=== PATIENT | male | born 1980 | race Caucasian/White ===

== ENCOUNTER 2023-07-21 11:31 | Emergency (ER) | payer SELFPAY ==
[2023-07-21] VITALS (8 sets, daily range): BP systolic 119–138; BP diastolic 75–85; PULSE 58–80; RESP 18–24; TEMP 36.6; O2SAT 97–100
--- NOTE | ~2023-07-21 | XR_ITS ---
EXAMINATION: XR chest 2V 07/21/2023 12:32 INDICATION: Left-sided chest pain PROCEDURE: PA and lateral views of the chest COMPARISON: No prior studies for comparison. FINDINGS: The lungs are clear. The cardiomediastinal silhouette is within normal limits. There are no pleural effusions. There is no pneumothorax suspected. IMPRESSION: 1: NO ACUTE CARDIOPULMONARY DISEASE. Reviewed, dictated and finalized at location B.
--- NOTE | 2023-07-21 11:29 | ECG_ITS ---
SEE SCANNED COPY FOR CONFIRMED REPORT MTDD
--- NOTE | 2023-07-21 11:38 | ED.CHESTPAIN ---
HPI - Chest Pain General Chief Complaint: Chest Pain Stated Complaint: chest pain Time Seen by Provider: 07/21/23 11:37 History of Present Illness HPI narrative: 43-year-old male history of anxiety presents to the emergency room from chest not for evaluation of worsening chest pain. Patient states that he has been experiencing intermittent chest pain for 1 year, exacerbated by his level of anxiety. States the pain is worse with movement inspiration. Patient also reports that he was started on propranolol of this morning for anxiety. Denies any shortness of breath or difficulty breathing. Denies nausea vomiting. Denies dizziness lightheadedness. Denies illicit drug use. Related Data Allergies Allergy/AdvReac Type Severity Reaction Status Date / Time tramadol AdvReac Seizure Verified 07/21/23 12:07 Review of Systems Review of Systems: CONSTITUTIONAL: Denies fever, chills, or sweats. EYES: Denies visual changes, redness, or discharge. ENT: Denies rhinorrhea, congestion, sore throat, or otalgia. CARDIOVASCULAR: Reports chest pain, palpitations RESPIRATORY: Denies cough or dyspnea. GASTROINTESTINAL: Denies abdominal pain, nausea, vomiting, or diarrhea. GENITOURINARY: Denies dysuria or hematuria. SKIN: Denies rash or itching. MUSCULOSKELETAL: Denies back pain, joint pain, or myalgia. NEUROLOGIC: Denies headache, numbness, dizziness, or weakness. PSYCHIATRIC: Denies anxiety or depression. Exam Narrative: GENERAL: Well-appearing, well-nourished, no physical limitations, and in no acute distress. HEAD: Normocephalic, atraumatic. EYES: Conjunctivae normal, PERRLA and EOMI. CHEST: Clear to auscultation. No respiratory distress. No wheezes rales or rhonchi. HEART: Regular rate and rhythm. No murmur heard. Normal peripheral pulses. EXTREMITIES: Normal range of motion. No edema. No clubbing or cyanosis SKIN: Warm, dry, no rash. No noted wounds NEURO: No focal deficits. Alert and oriented x3. MAEW. CN's II-XI intact bilaterally, normal gait PSYCH: Cooperative. Normal mood and affect. Course Vital Signs Vital signs: Vital Signs Temperature 36.6 C 07/21/23 11:32 Pulse Rate 72 07/21/23 11:32 Respiratory Rate 18 07/21/23 11:32 Blood Pressure 138/78 07/21/23 11:32 Pulse Oximetry 100 07/21/23 11:32 Oxygen Delivery Room Air 07/21/23 11:32 Temperature 36.6 C 07/21/23 11:32 Pulse Rate 71 07/21/23 12:06 Respiratory Rate 18 07/21/23 11:32 Blood Pressure 138/78 07/21/23 11:32 Pulse Oximetry 97 07/21/23 12:13 Oxygen Delivery Room Air 07/21/23 12:15 MDM - Chest Pain MDM Narrative Medical decision making narrative: 43-year-old male history of anxiety of polysubstance abuse who admits to being 30 days clean up presented to us from [facility] for acute onset of chest pain. Exam show no evidence of volume overload. His EKG showed no signs of ischemia. Troponin was negative. Heart score is a 0. Will discharge patient back to [facility]. Encourage patient to speak with staff at [facility] for further direction and medical management. Lab Data 07/21/23 11:53 07/21/23 11:53 Labs: Lab Results 07/21/23 Range/Units 11:53 WBC 9.7 (4.5-10.0) K/mm3 RBC 4.34 L (4.6-6.20) M/mm3 Hgb 13.0 L (14.0-18.0) g/dL Hct 39.5 L (42.0-52.0) % MCV 91.0 (80-100) fl MCH 30.0 (26-34) pg MCHC 32.9 (32-36) g/dl RDW 13.0 (11.5-14.5) % Plt Count 442 H (150-375) k/mm3 MPV 9.6 (7.4-10.4) fl Immature Gran % (Auto) 0.3 (0-0.5) % Neut % (Auto) 79.8 H (45.5-73.1) % Lymph % (Auto) 13.3 L (18.3-44.2) % [place] % (Auto) 5.5 (2.6-8.5) % Eos % (Auto) 0.8 (0-4.4) % Baso % (Auto) 0.3 (0.2-1.2) % Lymph # (Auto) 1.29 (0.9-3.2) K/mm3 [place] # (Auto) 0.5 (0.1-0.6) K/mm3 Eos # (Auto) 0.1 (0-0.3) K/mm3 Baso # (Auto) 0.0 (0.0-0.1) K/mm3 Abs Immat Gran (auto) 0.03 (0.00-0.031) K/mm3 Absolute Neuts (auto) 7.7 H (1.3-6.7) K/mm3 Abs
[2023-07-21 12:07] LABS: Basophils Percent Auto 0.3 % (0.2-1.2); Eosinophils Absolute Auto 0.1 K/mm3 (0-0.3); Eosinophils Percent Auto 0.8 % (0-4.4); Hematocrit 39.5 % (42.0-52.0); Immature Granulocyte Absolute 0.03 K/mm3 (0.00-0.031); Immature Granulocyte Percent A 0.3 % (0-0.5); Lymphocytes Absolute Auto 1.29 K/mm3 (0.9-3.2); Lymphocytes Percent Auto 13.3 % (18.3-44.2); Mean Corpuscular HGB Conc 32.9 g/dl (32-36); Mean Platelet Volume 9.6 fl (7.4-10.4); Monocytes Absolute Auto 0.5 K/mm3 (0.1-0.6); Monocytes Percent Auto 5.5 % (2.6-8.5); Neutrophils Absolute Auto 7.7 K/mm3 (1.3-6.7); Neutrophils Percent Auto 79.8 % (45.5-73.1); Platelet Count Result 442 k/mm3 (150-375); Red Blood Count 4.34 M/mm3 (4.6-6.20); White Blood Count 9.7 K/mm3 (4.5-10.0)
[2023-07-21 12:18] LABS: Alanine Aminotransferase 19 U/L (6-50); Albumin Level 4.8 g/dL (3.5-5.1); Alkaline Phosphatase 133 U/L (38-126); Anion Gap 11 mmol/L (4-12); Aspartate Amino Transferase 23 U/L (17-59); Blood Urea Nitrogen 20 mg/dL (9-20); Calcium 9.9 mg/dL (8.4-10.2); Carbon Dioxide 18 mmol/L (22-30); Chloride 111 mmol/L (98-107); Estimated CRCL calculation 96 ml/min; Estimated Glomerular Filt Rate > 60; Glucose 100 mg/dL (65-110); Lipase 198 U/L (23-300); Potassium 4.1 mmol/L (3.4-5.0); Sodium 140 mmol/L (137-145)
[2023-07-21 12:22] LABS: Partial Thromboplastin Time 32.7 Seconds (22.3-36.8); Prothrombin Time 13.4 Seconds (11.1-14.7)
[2023-07-21 12:29] LABS: Troponin I < 0.012 ng/mL (0.000-0.034)
[2023-07-21] MEDS: Please add drug allergy info to patient profile. 1 EACH XX (12:44)
== END 2023-07-21 13:49 | disposition home or self-care (01) ==
PROVIDERS: Emergency Medicine; Emergency Provider Nurse Practitioner Family
DX: R07.89 Other chest pain (principal); F41.9 Anxiety disorder, unspecified
CPT/HCPCS: 36415; 71046; 80053; 83690; 84484; 85025; 85610; 85730; 93005; 99284

== ENCOUNTER 2025-02-03 13:16 | Emergency (ER) | payer OTHER, SELFPAY ==
--- NOTE | ~2025-02-03 | CT_ITS ---
EXAMINATION: CT abdomen pelvis wo con DATE: 02/03/2025 15:48 INDICATION: Right flank pain TECHNIQUE: Computed tomography (CT) of the abdomen and pelvis was performed with 100 mL Omnipaque-350 intravenous contrast. Automated exposure control and iterative reconstruction technique were employed. The dose-length product was 214.67 mGy-cm. COMPARISON: None FINDINGS: Lung bases are clear. Heart size is normal. No pericardial or pleural effusion. Liver, gallbladder, spleen, pancreas and bilateral adrenal glands are normal. Bilateral nephrolithiasis with 5 stones in the right kidney measuring up to 6 mm and 4 stones in the left kidney measuring up to 4 mm. There is an obstructing 4 mm stone in the distal right ureter possibly 3 cm from the ureterovesicular junction with mild right hydroureteronephrosis and mild perinephric stranding. There are 2 stones in the proximal left ureter the more caudal 7 mm and additional 2 mm stone approximately 1 cm more proximally. There is however no left-sided hydronephrosis. Bladder is normal. No bowel obstruction. The appendix is not visualized. No pericecal inflammatory change to suggest acute appendicitis. No free intraperitoneal gas or fluid. No pathologically enlarged abdominal or pelvic lymphadenopathy. L5 laminectomy with instrumented L5-S1 anterior and posterior spinal fusion with interbody fusion device and bilateral vertical rochelle and pedicle screw fixation. IMPRESSION: 1. Bilateral nephrolithiasis with obstructing 4 mm on the distal right ureter with mild right hydronephrosis. Nonobstructing 2 mm and 7 more stones in the proximal left ureter without hydronephrosis. Reviewed, dictated and finalized at location A. IMPRESSION: 1. Bilateral nephrolithiasis with obstructing 4 mm on the distal right ureter w ith mild right hydronephrosis. Nonobstructing 2 mm and 7 more stones in the pro ximal left ureter without hydronephrosis.
--- OUTSIDE RECORDS SUMMARY | 2025-02-03 13:20 | XMS_ITS ---
Author Organization Unknown Address [address], [place] [id number] Phone Care Team Providers Care Perinatal Director Name Role Phone ELISHA MADISON Attending Unavailable Immunization Immunization Date Status Additional Notes Code Code System Td (adult), 2 Lf tetanus toxoid, preservative free, adsorbed 10/25/2009 Completed 09 CVX COVID-19, mRNA, LNP-S, PF, 1 00 mcg/0.5mL dose or 50 mcg/0.25mL dose 09/05/2020 Completed 207 CVX COVID-19, mRNA, LNP-S, PF, 1 00 mcg/0.5mL dose or 50 mcg/0.25mL dose 08/08/2020 Completed 207 CVX Social History Type Status Start Date End Date Code Code Syst em Smoking History Never smoker (Never Smoked) 035176042 SNOMED CT Sex Male Medications Medication Start Date End Date Route Frequency Dose Code Code System Medication Instructions Home Meds Flomax 0.4MG Oral Capsule 01/21/2023 06/21/2023 BY MOUTH EVERYDAY 1 CAPSULE 624379 RxNorm 1 CAPSULE BY MOUTH EVERYDAY Omeprazole 40MG Oral Capsule, Delayed Release 01/21/2023 06/21/2023 BY MOUTH EVERYDAY 1 CAPSULE [id number] RxNorm 1 CAPSULE BY MOUTH EVERYDAY valACYclovir HCl 1GM Oral Tablet 01/21/2023 06/21/2023 BY MOUTH EVERYDAY 214272 RxNorm TABLET BY MOUTH EVERYDAY Omeprazole 40MG Oral Capsule, Delayed Release 08/13/2023 08/20/2023 By Mouth Daily 1 CAPSULE [id number] RxNorm 1 CAPSULE By Mouth Daily Dulcolax 5MG Oral Tablet, Enteric Coated 08/13/2023 Unknown BY MOUTH DIRECTED 4 TABLET [id number] RxNorm TAKE 4 TABLETS BY MOUTH THE DAY BEFORE PROCEDURE AT 12PM for Colon Prep Polyethylene Glycol Powder 08/13/2023 Unknown ORAL DIRECTED 238 GRAM RxNorm mix the entire bottle with 64 ounces of Gatorade and drink 1/2 at 4pm and remaining half at 10pm on day before procedure Diflucan 200MG Oral Tablet 08/27/2023 Unknown BY MOUTH EVERYDAY 1 TABLET [id number] RxNorm 1 TABLET BY MOUTH EVERYDAY Fluconazole 200MG Oral Tablet 08/28/2023 Unknown By Mouth Daily 1 TABLET RxNorm 1 TABLET By Mouth Daily for 14 days Assessment You had the following problems:CONNECTIVE TISSUE AND DISC STENOSIS OF INTERVERTEBRAL FORAMINA OF LUMBAR REGIONINTERVERTEBRAL DISC DISORDERS WITH RADICULOPATHY, LUMBOSACRAL REGIONCHRONIC BACK PAINPAIN IN HIPDEPRESSION WITH ANXIETYSUBSTANCE DEPENDENCECHRONIC KIDNEY DISEASE STAGE 2ANXIETYMYOPIA OF BOTH EYESHISTORY OF KIDNEY STONEHISTORY OF LUMBAR FUSIONDYSURIAHERPESVIRAL VESICULAR DERMATITISDYSKINESIA OF ESOPHAGUSANESTHESIA OF SKINSTONE IN KIDNEY Hospital Discharge Instructions Should you have any questions prior to discharge, please contact a member of your healthcare team. If you have left the hospital and have any questions, please contact your primary care physician. 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 active 521144325 SNOMED-CT INTERVERTEBRAL DISC DISORDERS WITH RADICULOPATHY, LUMBOSACRAL REGION active 256810270 SNOMED-CT CHRONIC BACK PAIN active 835623882 SN OMED-CT PAIN IN HIP active 67286970 SNOMED-C T DEPRESSION WITH ANXIETY active 591832 006 SNOMED-CT SUBSTANCE DEPENDENCE active 8978931 SNOMED-CT CHRONIC KIDNEY DISEASE STAGE 2 active 748641274 SNOMED-CT ANXIETY active 66281268 SNOMED-CT MYOPIA OF BOTH EYES active 5014794413 53472 SNOMED-CT HISTORY OF KIDNEY STONE active 879399 008 SNOMED-CT HISTORY OF LUMBAR FUSION 01/19/2020 active 49911549290387 SNOMED-CT DYSURIA 01/16/2023 active 69315012 SNOMED-CT HERPESVIRAL VESICULAR DERMATITIS active 121823702 SNOMED-CT 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 12546 008 SNOMED-CT ANESTHESIA OF SKIN 01/16/2023 active 034666175 SNOMED-CT STONE IN KIDNEY active 70770620 SNOM ED-CT LOW BACK PAIN 01/21/2023 resolved 411078892 SNOME D-CT COLLAPSE 01/21/2023 resolved 052538893 SNOMED-CT DYSURIA 01/20/2019 resolved 41786599 SNOMED-CT LUMBAR RADICULOPATHY 01/21/2023 resolved 44919423 5 SNOMED-CT SACROILIAC PAIN 01/21/2023 resolved 490316677 SNO MED-CT INSOMNIA 01/20/2019 resolved 481659097 SNOMED-CT ACUTE GASTROENTERITIS 04/16/2018 resolved 9749834 3 SNOMED-CT HYPOPOTASSEMIA 01/21/2023 resolved 74606358 SNOM ED-CT LUMBAGO 01/21/2023 resolved 305943791 SNOMED-CT ABDOMINAL PAIN, EPIGASTRIC 04/16/2018 resolved 20879328 SNOMED-CT DYSTHYMIC DISORDER 01/21/2023 resolved 13753654 SNOMED-CT DEPRESSION SCREENING 04/16/2018 resolved 67911427 6 SNOMED-CT MAJOR DEPRESSIVE DISORDER, RECURRENT, MODERATE 01/21/2023 resolved 89581185 SNOMED-CT RADICULOPATHY 01/21/2023 resolved 21557340 SNOME D-CT CONTACT WITH AND (SUSPECTED) EXPOSURE TO INFECTIONS WITH A PREDOMINANTLY SEXUAL 01/21/2023 resolved 850937099 SNOMED- CT ENCOUNTER FOR SCREENING FOR INFECTIONS WITH A PREDOMINANTLY SEXUAL MODE OF TRANS 01/21/2023 resolved 099692792 SNOMED-CT HISTORY OF KIDNEY STONE 10/05/2014 resolved 11270 5008 SNOMED-CT NASAL ULCER 01/20/2019 resolved 54096170 SNOMED- CT Allergies and Adverse Reactions Allergy Substance Reaction Severity Start Date Concern Status Code Code System TRAMADOL Seizure (SNOMED-CT: 5869493) Severe 05/03/2018 Active 60436 RxNorm NKA - NO KNOWN ALLERGIES Mild Active 087004494 SNOMED-CT Plan of Treatment New Patient 30 10/05/2014 Established Patient 15 07/30/2016 covid swab 5 min 01/01/2021 Description Due Date Details Instructions depression screening 05/03/2019 Colonoscopy 08/19/2033 Colonoscopy per formed on 08/20/[address] Mckeon. Recommended repeat colonoscopy in 10 years Encounters Encounter Diagnosis Start Date Code Code Sys tem Pain in thoracic spine 03/12/2023 [id number] [facility] D-CT Personal Care Team Section Performer Name Performer Role Active Date Inactive Ayush Sen Progress Notes [facility] PT Initial Evaluation Scanned image
--- OUTSIDE RECORDS SUMMARY | 2025-02-03 13:20 | XMS_ITS | Clinical Summary ---
Author Organization [facility] Address [address] [place] [id number] Care Team Providers Care Ecmo Specialist Name Role Phone Ayush Augustin MD Primary Care Provider [phone] Allergies No known active allergies Medications No known medications Social History Tobacco Use Types Packs/Day Years Used Date Smoking Tobacco: Never Smokeless Tobacco: Never Tobacco Cessation:Counseling Given: Not Answered Alcohol Use Standard Drinks/Week Comments Never 0 (1 standard drink = 0.6 oz pur e alcohol) Sex and Gender Information Value Date Recorded Sex Assigned at Not on file Legal Sex Male 7:16 PM CDT Gender Identity Not on file Sexual Orientation Not on file Last Filed Vital Signs Vital Sign Reading Time Taken Comments Blood Pressure 126/85 05/26/2023 6:00 AM MORTGAGE ADVISOR Pulse 88 05/25/2023 11:54 PM MORTGAGE ADVISOR Temperature 37.1 C (98.8 F) 05/25/2023 11:54 PM MORTGAGE ADVISOR Respiratory Rate 20 05/25/2023 11:54 PM MORTGAGE ADVISOR Oxygen Saturation 96% 05/26/2023 6:00 AM MORTGAGE ADVISOR Inhaled Oxygen Concentration - - Weight 69.4 kg (153 lb) 05/25/2023 11:54 PM MORTGAGE ADVISOR Height 177.8 cm (5' 10) 05/25/2023 11:54 PM MORTGAGE ADVISOR Body Mass Index 21.95 05/25/2023 11:54 PM MORTGAGE ADVISOR Plan of Treatment Health Maintenance Due Date Last Done Comments Annual Physical 1984 Hepatitis C 1999 DTaP, Tdap and Td Vaccines ( 1 - Tdap) 2000 Hepatitis B Vaccines (1 of 3 - 19+ 3-dose series) 2000 HPV Vaccines (1 - 3-dose SCD M series) 2008 COVID-19 Vaccine (2024-2 6 season) 2024 09/05/2020, 08/08/2020 Influenza Adult (#1) 2025 Hepatitis A Vaccines Aged Out No long er eligible based on patient's age to complete this topic Meningococcal B Vaccine Aged Out No l onger eligible based on patient's age to complete this topic Meningococcal Vaccine Aged Out No autumn hong eligible based on patient's age to complete this topic Pneumococcal Vaccine: Pediatrics (0 to 5 Years) and At-Risk Patients (6 to 49 Years) Aged Out No longer eligible b ased on patient's age to complete this topic RSV Immunizations Under 20 Months Aged Out No longer eligible b ased on patient's age to complete this topic Insurance ANAHUAC MEDICAID ANA[employer]AC MEDICAID Care Teams Ecmo Specialist Relationship Specialty Start Date End Date Ayush Augustin MD [address] [place] [address] PCP - General UROLOGY 05/25/23
--- OUTSIDE RECORDS SUMMARY | 2025-02-03 13:21 | XMS_ITS ---
Author Organization Unknown Address [address] [place], [place] [id number] Phone Care Team Providers Care Hand Alterations Seamstress Name Role Phone YARITZA DUVAL Attending Unavailable Immunization Immunization Date Status Additional Notes Code Code System Td (adult), 2 Lf tetanus toxoid, preservative free, adsorbed 10/25/2009 Completed 09 CVX COVID-19, mRNA, LNP-S, PF, 1 00 mcg/0.5mL dose or 50 mcg/0.25mL dose 09/05/2020 Completed 207 CVX COVID-19, mRNA, LNP-S, PF, 1 00 mcg/0.5mL dose or 50 mcg/0.25mL dose 08/08/2020 Completed 207 CVX Results DRUG SCREEN (TRIAGE) (URINE) - Collect Date/Time: 03/07/2024 14:06 [facility] ID: [id number] [address], [place], [id number] LOINC: [id number] Test Value Unit Reference Range Code Code System Flag THC POSITIVE NEGATIVE A PCP NEGATIVE NEGATIVE HERRERA NEGATIVE NEGATIVE mAMP NEGATIVE NEGATIVE OPI NEGATIVE NEGATIVE AMP NEGATIVE NEGATIVE BZO POSITIVE NEGATIVE A TCA NEGATIVE NEGATIVE MTD NEGATIVE NEGATIVE BAR NEGATIVE NEGATIVE OXY NEGATIVE NEGATIVE BUP POSITIVE NEGATIVE A Social History Type Status Start Date End Date Code Code Syst em Smoking History Never smoker (Never Smoked) 907810147 SNOMED CT Sex Male Medications Medication Start Date End Date Route Frequency Dose Code Code System Medication Instructions Home Meds Dulcolax 5MG Oral Tablet, Enteric Coated 08/13/2023 Unknown BY MOUTH DIRECTED 4 TABLET 861501 RxNorm TAKE 4 TABLETS BY MOUTH THE DAY BEFORE PROCEDURE AT 12PM for Colon Prep Polyethylene Glycol Powder 08/13/2023 Unknown ORAL DIRECTED 238 GRAM RxNorm mix the entire bottle with 64 ounces of Gatorade and drink 1/2 at 4pm and remaining half at 10pm on day before procedure Diflucan 200MG Oral Tablet 08/27/2023 Unknown BY MOUTH EVERYDAY 1 TABLET [id number] RxNorm 1 TABL ET BY MOUTH EVERYDAY Fluconazole 200MG Oral Tablet [...] OF INTERVERTEBRAL FORAMINA OF LUMBAR REGION active 769565293 SNOMED-CT INTERVERTEBRAL DISC DISORDERS WITH RADICULOPATHY, LUMBOSACRAL REGION active 436088188 SNOMED-CT CHRONIC BACK PAIN active 331917755 SN OMED-CT PAIN IN HIP active 68059780 SNOMED-C T DEPRESSION WITH ANXIETY active 097254 006 SNOMED-CT SUBSTANCE DEPENDENCE active 5272664 SNOMED-CT CHRONIC KIDNEY DISEASE STAGE 2 active 451382961 SNOMED-CT ANXIETY active 74824559 SNOMED-CT MYOPIA OF BOTH EYES active 9300273569 31286 SNOMED-CT HISTORY OF KIDNEY STONE active 516819 008 SNOMED-CT HISTORY OF LUMBAR FUSION 01/19/2020 active 69485593910903 SNOMED-CT DYSURIA 01/16/2023 active 58473158 SNOMED-CT HERPESVIRAL VESICULAR DERMATITIS active 905660759 SNOMED-CT 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 03164 008 SNOMED-CT ANESTHESIA OF SKIN 01/16/2023 active 361247149 SNOMED-CT STONE IN KIDNEY active 53302559 SNOM ED-CT LOW BACK PAIN 01/21/2023 resolved 871481403 SNOME D-CT COLLAPSE 01/21/2023 resolved 489076611 SNOMED-CT DYSURIA 01/20/2019 resolved 09401937 SNOMED-CT LUMBAR RADICULOPATHY 01/21/2023 resolved 32242658 5 SNOMED-CT SACROILIAC PAIN 01/21/2023 resolved 891570847 SNO MED-CT INSOMNIA 01/20/2019 resolved 993909244 SNOMED-CT ACUTE GASTROENTERITIS 04/16/2018 resolved 9250063 3 SNOMED-CT HYPOPOTASSEMIA 01/21/2023 resolved 15232250 SNOM ED-CT LUMBAGO 01/21/2023 resolved 438548070 SNOMED-CT ABDOMINAL PAIN, EPIGASTRIC 04/16/2018 resolved 12577240 SNOMED-CT DYSTHYMIC DISORDER 01/21/2023 resolved 00334610 SNOMED-CT DEPRESSION SCREENING 04/16/2018 resolved 49763426 6 SNOMED-CT MAJOR DEPRESSIVE DISORDER, RECURRENT, MODERATE 01/21/2023 resolved 51304766 SNOMED-CT RADICULOPATHY 01/21/2023 resolved 28683083 SNOME D-CT CONTACT WITH AND (SUSPECTED) EXPOSURE TO INFECTIONS WITH A PREDOMINANTLY SEXUAL 01/21/2023 resolved 053413651 SNOMED- CT ENCOUNTER FOR SCREENING FOR INFECTIONS WITH A PREDOMINANTLY SEXUAL MODE OF TRANS 01/21/2023 resolved 744242284 SNOMED-CT HISTORY OF KIDNEY STONE 10/05/2014 resolved 07943 5008 SNOMED-CT NASAL ULCER 01/20/2019 resolved 37468310 SNOMED- CT Allergies and Adverse Reactions Allergy Substance Reaction Severity Start Date Concern Status Code Code System TRAMADOL Seizure (SNOMED-CT: 7237451) Severe 05/03/2018 Active 62079 RxNorm NKA - NO KNOWN ALLERGIES Mild Active 013651174 SNOMED-CT Plan of Treatment New Patient 30 10/05/2014 Established Patient 15 07/30/2016 covid swab 5 min 01/01/2021 Description Due Date Details Instructions depression screening 05/03/2019 Colonoscopy 08/19/2033 Colonoscopy per formed on 08/20/[address] Mckeon. Recommended repeat colonoscopy in 10 years Encounters Encounter Diagnosis Start Date Code Code Sys tem Opioid abuse 03/07/2024 5030462 SNOMED-CT Personal Care Team Section Performer Name Performer Role Active Date Inactive Ayush Sen
--- OUTSIDE RECORDS SUMMARY | 2025-02-03 13:21 | XMS_ITS ---
Author Organization Unknown Address [address] [place] [phone] Phone Care Team Providers Care Topographical Surveyor Name Role Phone TAVO MADISON Primary Unavailable Social History Type Status Start Date End Date Code Code Syst em Smoking History Never smoker (Never Smoked) 195556301 SNOMED CT Sex Male Medications Medication Start Date End Date Route Frequency Dose Code Code System Medication Instructions Home Meds Flomax 0.4MG Oral Capsule 01/21/2023 06/21/2023 BY MOUTH EVERYDAY 1 CAPSULE 809114 RxNorm 1 CAPSULE BY MOUTH EVERYDAY Omeprazole 40MG Oral Capsule, Delayed Release 01/21/2023 06/21/2023 BY MOUTH EVERYDAY 1 CAPSULE 394656 RxNorm 1 CAPSULE BY MOUTH EVERYDAY valACYclovir HCl 1GM Oral Tablet 01/21/2023 06/21/2023 BY MOUTH EVERYDAY 457372 RxNorm TABLET BY MOUTH EVERYDAY Omeprazole 40MG Oral Capsule, Delayed Release 08/13/2023 08/20/2023 By Mouth Daily 1 CAPSULE 639785 RxNorm 1 CAPSULE By Mouth Daily Dulcolax 5MG Oral Tablet, Enteric Coated 08/13/2023 Unknown BY MOUTH DIRECTED 4 TABLET [id number] RxNorm TAKE 4 TABLETS BY MOUTH THE [...] OF INTERVERTEBRAL FORAMINA OF LUMBAR REGION active 167507874 SNOMED-CT INTERVERTEBRAL DISC DISORDERS WITH RADICULOPATHY, LUMBOSACRAL REGION active 162386208 SNOMED-CT CHRONIC BACK PAIN active 516726689 SN OMED-CT PAIN IN HIP active 24136229 SNOMED-C T DEPRESSION WITH ANXIETY active 738294 006 SNOMED-CT SUBSTANCE DEPENDENCE active 7169042 SNOMED-CT CHRONIC KIDNEY DISEASE STAGE 2 active 630232251 SNOMED-CT ANXIETY active 52634904 SNOMED-CT MYOPIA OF BOTH EYES active 6544406841 26808 SNOMED-CT HISTORY OF KIDNEY STONE active 932499 008 SNOMED-CT HISTORY OF LUMBAR FUSION 01/19/2020 active 56623142040997 SNOMED-CT DYSURIA 01/16/2023 active 47821972 SNOMED-CT HERPESVIRAL VESICULAR DERMATITIS active 893185673 SNOMED-CT 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 97814 008 SNOMED-CT ANESTHESIA OF SKIN 01/16/2023 active 667464514 SNOMED-CT STONE IN KIDNEY active 69165623 SNOM ED-CT LOW BACK PAIN 01/21/2023 resolved 384191358 SNOME D-CT COLLAPSE 01/21/2023 resolved 358329451 SNOMED-CT DYSURIA 01/20/2019 resolved 75022500 SNOMED-CT LUMBAR RADICULOPATHY 01/21/2023 resolved 69895641 5 SNOMED-CT SACROILIAC PAIN 01/21/2023 resolved 667070720 SNO MED-CT INSOMNIA 01/20/2019 resolved 622358313 SNOMED-CT ACUTE GASTROENTERITIS 04/16/2018 resolved 1985953 3 SNOMED-CT HYPOPOTASSEMIA 01/21/2023 resolved 87269420 SNOM ED-CT LUMBAGO 01/21/2023 resolved 128673571 SNOMED-CT ABDOMINAL PAIN, EPIGASTRIC 04/16/2018 resolved 17793084 SNOMED-CT DYSTHYMIC DISORDER 01/21/2023 resolved 03169742 SNOMED-CT DEPRESSION SCREENING 04/16/2018 resolved 64356476 6 SNOMED-CT MAJOR DEPRESSIVE DISORDER, RECURRENT, MODERATE 01/21/2023 resolved 06547047 SNOMED-CT RADICULOPATHY 01/21/2023 resolved 54193611 SNOME D-CT CONTACT WITH AND (SUSPECTED) EXPOSURE TO INFECTIONS WITH A PREDOMINANTLY SEXUAL 01/21/2023 resolved 306027657 SNOMED- CT ENCOUNTER FOR SCREENING FOR INFECTIONS WITH A PREDOMINANTLY SEXUAL MODE OF TRANS 01/21/2023 resolved 412923107 SNOMED-CT HISTORY OF KIDNEY STONE 10/05/2014 resolved 56523 5008 SNOMED-CT NASAL ULCER 01/20/2019 resolved 53312787 SNOMED- CT Allergies and Adverse Reactions Allergy Substance Reaction Severity Start Date Concern Status Code Code System TRAMADOL Seizure (SNOMED-CT: 4941276) Severe 05/03/2018 Active 57906 RxNorm NKA - NO KNOWN ALLERGIES Mild Active 708427413 SNOMED-CT Plan of Treatment New Patient 30 10/05/2014 Established Patient 15 07/30/2016 covid swab 5 min 01/01/2021 Description Due Date Details Instructions depression screening 05/03/2019 Colonoscopy 08/19/2033 Colonoscopy per formed on 08/20/[address] Mckeon. Recommended repeat colonoscopy in 10 years Personal Care Team Section
--- OUTSIDE RECORDS SUMMARY | 2025-02-03 13:22 | XMS_ITS | Clinical Summary ---
Author Organization [facility] Address [address] [place] [address] Care Team Providers Care Dicer Machine Operator Name Role Phone Viktoriya [place] MD Unavailable Ayush Evans MD Primary Care Provider [phone] Source Comments [facility],non-owned Affiliates and Associated Physician Practices is amultiple site organization consisting of ambulatory clinics and hospital sitesin [place], [place], [place] and [place]. This disclosure is being madepursuant to the Care Everywhere program and may not contain all information available regarding this patient. Last updated 17.[facility] Allergies Active Allergy Reactions Criticality Noted Date Comments Tramadol Seizures High 09/20/2018 Medications * This document contains information received from the source organization and may not represent a complete record from that organization. * Be aware that medications may not be up to date on this document. Alwaysverify current medications with the patient. ibuprofen (Motrin) 600 MG tabletIndicati ons:Pain Take 1 (one) tablet by mouth every 6 hours as needed Reasons: Pain 60 tablet 06/01/19 24 Active clonazePAM (KlonoPIN) 1 MG tabletIndicati ons:Anxiety Take 1 (one) tablet by mouth 3 times daily as needed for Anxiety (Anxiety) Reasons: Feeling Anxious 90 tablet 06/01/19 24 Active gabapentin (Neurontin) 300 MG capsuleIndicat ions:Neuropath ic Pain Take 1 (one) capsule by mouth 3 times daily Reasons: Neuropathic Pain 90 capsule 06/01/19 Active lidocaine (Lidoderm) 5 % patchIndicatio ns:Allodynia Apply 2 (two) patches to skin every 24 hours Apply patch to most painful area and remove after 12 hours. May reapply a new patch 12 hours later. Reasons: Allodynia 30 patch 06/01/19 Active tiZANidine (Zanaflex) 4 MG tabletIndicati ons:Muscle Spasticity,Mus culoskeletal Pain Take 1 (one) tablet by mouth every 6 hours as needed for Muscle Spasms Reasons: Muscle Spasticity, Musculoskeletal Pain 30 tablet 06/01/19 Active Active Problems Problem Noted Date Diagnosed Date Opioid dependence in remission 05/29/2023 Cannabis use disorder 05/29/2023 Unspecified mood (affective) disorder 05/28/2023 Headache disorder 05/06/2018 Anxiety 03/26/2018 Overview (02/15/2020): Last Assessment & Plan: - continue home meds Abdominal pain 09/23/2016 Lumbar radiculopathy, acute Social History Tobacco Use Types Packs/Day Years Used Date Smoking Tobacco: Never Smokeless Tobacco: Never Tobacco Cessation:Counseling Given: Not Answered Alcohol Use Standard Drinks/Week Comments Not Currently 1 (1 standard drink = 0.6 oz pur e alcohol) AUDIT-C Answer Date Recorded Q1: How often do you have a drink containing alcohol? Never 05/28/2023 Q2: How many drinks containi ng alcohol do you have on a typical day when you are drinking? Patient does not drink Q3: How often do you have si x or more drinks on one occasion? Never 05/28/2023 Overall Financial Resource Strain (CARDIA) Answe r Date Recorded How hard is it for you to pa y for the very basics like food, housing, medical care, and heating? Not very hard 05/28/2023 [facility] [place] [facility] Occupat ional Health - Occupational Stress Questionnaire Answer Date Recorded Do you feel stress - tense, restless, nervous, or anxious, or unable to sleep at night because your mind is troubled all the time - these days? Very much 05/28/2023 Hunger Vital Sign Answer Date Recorded Within the past 12 months, y ou worried that your food would run out before you got the money to buy more. Never true 05/28/19 24 Within the past 12 months, t he food you bought just didn't last and you didn't have money to get more. Never true 05/28/2023 PRAPARE - Transportation Answer Date Re corded In the past 12 months, has l ack of transportation kept you from medical appointments or from getting medications? Yes 05/08 In the past 12 months, has l ack of transportation kept you from meetings, work, or from getting things needed for daily living? Yes 05/28/2023 Housing Stability Vital Sign Answer Karl e Recorded In the last 12 months, was t here a time when you were not able to pay the mortgage or rent on time? No 05/28/2023 In the last 12 months, how many places have you lived? 1 05/28/2023 In the last 12 months, was t here a time when you did not have a steady place to sleep or slept in a residential (including now)? No 05/28/2023 Sex and Gender Information Value Date Recorded Sex Assigned at Not on file Legal Sex Male 10:10 PM FOOD CONCESSION MANAGER Gender Identity Not on file Sexual Orientation Not on file Last Filed Vital Signs Vital Sign Reading Time Taken Comments Blood Pressure 136/94 06/01/2023 8:12 AM FOOD CONCESSION MANAGER Pulse 93 06/01/2023 8:12 AM FOOD CONCESSION MANAGER Temperature 36.9 C (98.4 F) 06/01/2023 8:12 AM FOOD CONCESSION MANAGER Respiratory Rate 16 06/01/2023 8:12 AM FOOD CONCESSION MANAGER Oxygen Saturation 98% 06/01/2023 8:12 AM FOOD CONCESSION MANAGER Inhaled Oxygen Concentration - - Weight 66.9 kg (147 lb 6.4 oz) 05/28/2023 12:31 PM FOOD CONCESSION MANAGER Height 180.3 cm (5' 11) 05/28/2023 12:31 PM FOOD CONCESSION MANAGER Body Mass Index 20.56 05/28/2023 12:31 PM FOOD CONCESSION MANAGER Plan of Treatment Health Maintenance Due Date Last Done Comments HIV SCREENING 1996 HEPATITIS C SCREENING 05/11/1999 DTAP/TDAP/TD VACCINES (1 - Tdap) 2000 HEPATITIS B VACCINE (1 of 3 - 19+ 3-dose series) 2000 HPV VACCINE (1 - 3-dose SCDM series) 2008 DEPRESSION SCREENING 04/06/2024 COVID-19 VACCINE ( season) 2024 09/05/2020, 08/08/2020 INFLUENZA VACCINE (#1) 2024 SCREENING FOR DIABETES 05/29/2026 , 05/29/2023, 01/22/2020, Additional history exists LIPID TESTING 05/29/2028 05/29/2023 ZOSTER VACCINE (1 of 2) 2031 HIB VACCINE Aged Out No longer eligi ble based on patient's age to complete this topic MENINGOCOCCAL (Group B) VACCINE SHARED DECISION-MAKING Aged Out No longer eligible based on patient's age to complete this topic MENINGOCOCCAL GROUPS A/C/Y/W VACCINE Aged Out No longer eligible based on patient's age to complete this topic PNEUMOCOCCAL VACCINE Aged Out No long er eligible based on patient's age to complete this topic Medical Devices Implanted Type Area International Trade Compliance Manager Device Identifier Shelf Expiration Date Model / Serial / Lot Screw Set Ti Spnl Brk Off Cd Hzn Nonster Implanted:Qty: 4 on 01/19/2020 by Ruel Benoit MD at [facility] N/A: Spine [employer] [id number] / / Screw 7.5mm 40mm Ma Spne Solera Cd Hzn Implanted:Qty: 2 on 01/19/2020 by Ruel Benoit MD at [facility] N/A: Spine [employer] [id number] / / Screw 7.5mm 35mm Ma Spne Solera Cd Hzn Implanted:Qty: 2 on 01/19/2020 by Ruel Benoit MD at [facility] N/A: Spine [employer] [id number] / / Graft Bone Grftn Dbm Aspt 5x2.5cm Post - [id number] Implanted:Qty: 1 on 01/19/2020 by Ruel Benoit MD at [facility] N/A: Spine Medtronic Sofamor [employer]ane[employer] Spine 11/09/2022 [id number] / [id number] / Interbody Fusion Device Implanted:Qty: 1 on 01/19/2020 by Ruel Benoit MD at [facility] N/A: Spine 07/11/2022 [id number] / / 19AB Interbody Fusion Device Implanted:Qty: 1 on 01/19/2020 by Ruel Benoit MD at [facility] N/A: Spine 08/20/2025 [id number] / / [id number] Roland Spnl 40mm 5.5mm Cd Hzn Crv Cocrmo Implanted:Qty: 2 on 01/19/2020 by Ruel Benoit MD at [facility] N/A: Spine [employer] Inc [id number] / / Procedures Procedure Name Priority Date/Time Associated Diagnosis Comments HEMOGLOBIN A1C Routine 05/29/2023 9:20 AM FOOD CONCESSION MANAGER LIPID PROFILE AM Draw 05/29/2023 9:20 AM FOOD CONCESSION MANAGER from Last 3 Months or Most Recently Relevant to Health Maintenance Results * HEMOGLOBIN A1C (05/29/2023 9:20 AM FOOD CONCESSION MANAGER) [facility] Hemoglobin A1c 5.6 4.2 - 5.6 % 05/30/2023 2:48 AM FOOD CONCESSION MANAGER [facility] Estimated Average Glucose 114 mg/dL 05/30/2023 2:48 AM [facility] Blood BLOOD SPECIMEN / Unknown Lab Venipuncture / Unknown 05/29/2023 9:20 AM FOOD CONCESSION MANAGER 05/30/2023 2:36 AM FOOD CONCESSION MANAGER Narrative [facility] - 05/30/2023 2:48 AM FOOD CONCESSION MANAGER HbA1c Interpretation: Normal: < 5.7% Pre-diabetes: 5.7-6.4% Diabetes: Equal to or greater than 6.5% Test results diagnostic of diabetes should be repeated for confirmation. Treatment target values recommended by ADA and other clinical organizations should be used to evaluate metabolic control in patients. This test should not replace glucose testing for patients with Type 1 diabetes, pediatric patients, or women. Falsely low HbA1c results may be observed in patients with clinical conditions that shorten erythrocyte life span or decrease mean erythrocyte age such as the presence of unstable hemoglobin variants, elevated hemoglobin F level or other causes of hemolytic anemia. HbA1c may not accurately reflect glycemic control when clinical conditions that affect erythrocyte survival are present. Severe Iron deficiency anemia may yield falsely high results. Hemoglobin A1c assay should not be used to diagnose or monitor diabetes in patients with malignancy, recent blood transfusion, chronic kidney or liver disease. This method may yield falsely low results when hemoglobin (HbF) exceeds 5% in the specimen. The Song Alinity assay for the measurement of HbA1c is a National Glycohemoglobin Standardization Program (NGSP) certified method. us Tk Garcia APRN-COMPLAINT OPERATOR LAB - CHEMISTRY ORDERABL ES Final Result [facility] [address] * (ABNORMAL) LIPID PROFILE (05/29/2023 9:20 AM [facility]) Cholesterol 207(H) <200 mg/dL 05/30/2023 2:58 AM [facility] Triglycerides 79 <150 mg/dL 05/30/2023 2:58 AM [facility] HDL Cholesterol 47 >40 mg/dL 4 2:58 AM [facility] Chol HDL Ratio 4.4 1.0 - 6.0 05/30/2023 2:58 AM [facility] LDL Calculated 144(H) 65 - 130 mg/dL 05/30/2023 2:58 AM [facility] VLDL Calculated 16 <=30 mg/dL 4 2:58 AM [facility] Blood BLOOD SPECIMEN / Unknown Lab Venipuncture / Unknown 05/29/2023 9:20 AM [facility] 05/30/2023 2:37 AM [facility] - 05/30/2023 2:58 AM [facility] Lipid Profile Comment: CHOLESTEROL LEVEL..................CLINICAL INTERPRETATION LESS THAN 200 MG/DL..............................DESIRABLE 200-239 MG/DL..............................BORDERLINE HIGH GREATER THAN 240 MG/DL................................HIGH LDL-CHOLESTEROL LEVEL..............CLINICAL INTERPRETATION LESS THAN 100 MG/DL................................OPTIMAL 100-129 MG/DL.................................NEAR OPTIMAL GREATER THAN 160 MG/DL...........................HIGH RISK HDL RISK LEVEL GREATER THEN 60 MG/DL............................DECREASED 40-60 MG/DL........................................AVERAGE LESS THAN 40 MG/DL...............................INCREASED TRIGLYCERIDE LEVEL..................CLINICAL INTERPRETATION LESS THAN 150 MG/DL...............................DESIRABLE 150-199 MG/DL...............................BORDERLINE HIGH 200-499 MG/DL..........................................HIGH GREATER THAN 500..................................VERY HIGH THE NATIONAL CHOLESTEROL EDUCATION PROGRAM HAS SET THE ABOVE GUIDELINES (REFERANCE VALUES) FOR CHOLESTEROL AND HDL. RISK ASSOCIATED WITH CHOLESTEROL/HDL RATIOS RISK....................MALE RATIO.............FEMALE RATIO 1/2 AVERAGE.................<3.4.......................<3.3 LOW RISK.................... 4.0 ...................... 3.8 AVERAGE..................... 5.0 ...................... 4.5 2X AVERAGE.................. 9.5 ...................... 7.0 3X AVERAGE...................>23........................>11 Tk Garcia LAND MOBILE RADIO TECHNICIAN-COMPLAINT OPERATOR LAB - CHEMISTRY ORDERABL ES Final Result Performing Organization Address City/State/[facility] Co de Phone Number [facility] [address] [place] [address], [facility] from Last 3 Months or Most Recently Relevant to Health Maintenance Insurance [facility] [employer] [place] [facility] Advance Directives * Full Code (Latest Code Status on File) Date Activated Date Inactivated Comments 05/28/2023 12:08 PM 06/01/2023 2:29 PM * Full Code Date Activated Date Inactivated Comments 01/19/2020 1:01 PM 01/23/2020 1:28 PM * Full Code Date Activated Date Inactivated Comments 01/19/2020 1:01 PM 01/19/2020 1:01 PM * Full Code Date Activated Date Inactivated Comments 09/23/2016 11:10 AM 09/24/2016 5:30 PM Care Teams Dicer Machine Operator Relationship Specialty Start Date End Date Ayush Evans MD [address] [place] [address] PCP - General Family Medicine 06/17/21 Viktoriya [place] MD [address] [place] [address] Family Medicine 09/20/18
--- OUTSIDE RECORDS SUMMARY | 2025-02-03 13:22 | XMS_ITS | Clinical Summary ---
Author Organization [facility] Address [address] [place] [id number] Care Team Providers Care Loft Worker Pile Driving Name Role Phone Ayush Evans MD Primary Care Provider Allergies Active Allergy Reactions Criticality Noted Date Comments Tramadol High 09/20/2018 Other reaction(s): Seizures Medications SUMAtriptan (IMITREX) 50 mg tabletIndication s:Nonintractable headache, unspecified chronicity pattern, unspecified headache type TAKE ONE TABLET BY MOUTH ONCE NEEDED FOR MIGRAINE FOR UP TO ONE DOSE, MAY REPEAT DOSE ONCE IN 2 HOURS IF NO RELIEF. DO NOT EXCEED TWO DOSES IN 24 HOURS. 9 tablet 3 Active Active Problems Problem Noted Date Diagnosed Date Kidney calculus 01/08/2022 Headache disorder 05/06/2018 Chronic pain due to trauma 03/27/2018 Assessment & Plan (03/27/2018 2:33 AM MACHINIST OUTSIDE): - continue gabapentin but hold tramadol. Sepsis 03/27/2018 Assessment & Plan (03/27/2018 2:39 AM MACHINIST OUTSIDE): - Leukocytosis with Left shift, Lactic acid 4 in OSH along with PETER. procalcitonin negative - UA, CXR in OSH negative. Repeat both UA and CXR, trend lactic acid - Vital sign stable - Empiric Levaquin stated but would favor rapid escalation if no source is identified, IVF PETER (acute kidney injury) 03/27/2018 Assessment & Plan (03/27/2018 2:38 AM MACHINIST OUTSIDE): - creatinine elevated to 1.4. Unknown baseline - IVF hydration. Monitor renal function and avoid nephrotoxins - check FENA, US retroperitoneal New onset seizure 03/26/2018 Assessment & Plan (03/27/2018 2:32 AM MACHINIST OUTSIDE): -transient loss of consciousness, widespread motor tonic contractions, clonic jerking movements -likely triggered by tramadol which can lower te seizure threshold -CT Head reviewed and negative. Routine EEG ordered -Urine drug screen negative -Seizure precautions, ativan prn -IV AED on Keppra -Neurology consultation done Anxiety 03/26/2018 Assessment & Plan (03/27/2018 2:31 AM MACHINIST OUTSIDE): - continue home meds Family History Medical History Relation Name Comments COPD Father Heart failure Father Relation Name Status Comments Father Social History Tobacco Use Types Packs/Day Years Used Date Smoking Tobacco: Never Smokeless Tobacco: Never Sex and Gender Information Value Date Recorded Sex Assigned at Not on file Legal Sex Male 10:10 PM CDT Gender Identity Not on file Sexual Orientation Not on file Last Filed Vital Signs Vital Sign Reading Time Taken Comments Blood Pressure 128/78 01/08/2022 12:08 PM CDT Pulse 70 01/08/2022 12:08 PM CDT Temperature 36.7 C (98 F) 01/08/2022 12:08 PM CDT Respiratory Rate 18 01/08/2022 12:08 PM CDT Oxygen Saturation 98% 01/08/2022 12:08 PM CDT Inhaled Oxygen Concentration - - Weight 93 kg (205 lb) 04/18/2022 9:37 AM MACHINIST OUTSIDE Height 177.8 cm (5' 10) 01/08/2022 12:08 PM CDT Body Mass Index 29.41 01/08/2022 12:08 PM CDT Plan of Treatment Health Maintenance Due Date Last Done Comments MMR Vaccines (1 of 1 - Standard series) 1982 Depression Screening 1993 Varicella Vaccines (1 of 2 - 13+ 2-dose series) 1994 Hepatitis B Vaccines (1 of 3 - 19+ 3-dose series) 2000 HPV Vaccines (1 - 3-dose SCD M series) 2008 DTaP,Tdap,and Td Vaccines (1 - Tdap) 10/26/2009 10/25/2009 COVID-19 Vaccine (3 - 2024-2 6 season) 2024 09/05/2020, 08/08/2020 Influenza Vaccine (#1) 2024 RSV Vaccines and 60 Years or Older (1 - 1-dose 75+ series) 2056 AMB Pneumococcal 0-49 yrs Aged Out No longer eligible based on patient's age to complete this topic HIB Vaccines Aged Out No longer eligi ble based on patient's age to complete this topic Hepatitis A Vaccines Aged Out No long er eligible based on patient's age to complete this topic IPV Vaccines Aged Out No longer eligi ble based on patient's age to complete this topic Meningococcal ACWY Vaccine Aged Out N o longer eligible based on patient's age to complete this topic Meningococcal B Vaccine Aged Out No l onger eligible based on patient's age to complete this topic RSV Vaccines <20 Months Aged Out No l onger eligible based on patient's age to complete this topic Insurance ([facility]) [facility] Advance Directives For more information, please contact: [phone] * Full Code (Latest Code Status on File) Date Activated Date Inactivated Comments 03/26/2018 11:30 PM 03/27/2018 6:12 PM Care Teams Loft Worker Pile Driving Relationship Specialty Start Date End Date Ayush [place] MD [address] [place] [address] PCP - General Family Medicine 04/10/22
--- OUTSIDE RECORDS SUMMARY | 2025-02-03 13:22 | XMS_ITS ---
Author Organization Unknown Address [address] [place] [phone] Phone Care Team Providers Care Process Control Programmer Name Role Phone TAVO MADISON Primary Unavailable Social History Type Status Start Date End Date Code Code Syst em Smoking History Never smoker (Never Smoked) 706897931 SNOMED CT Sex Male Medications Medication Start Date End Date Route Frequency Dose Code Code System Medication Instructions Home Meds Flomax 0.4MG Oral Capsule 01/21/2023 06/21/2023 BY MOUTH EVERYDAY 1 CAPSULE 990218 RxNorm 1 CAPSULE BY MOUTH EVERYDAY Omeprazole 40MG Oral Capsule, Delayed Release 01/21/2023 06/21/2023 BY MOUTH EVERYDAY 1 CAPSULE 401723 RxNorm 1 CAPSULE BY MOUTH EVERYDAY valACYclovir HCl 1GM Oral Tablet 01/21/2023 06/21/2023 BY MOUTH EVERYDAY 035121 RxNorm TABLET BY MOUTH EVERYDAY Omeprazole 40MG Oral Capsule, Delayed Release 08/13/2023 08/20/2023 By Mouth Daily 1 CAPSULE 568295 RxNorm 1 CAPSULE By Mouth Daily Dulcolax [...] OF INTERVERTEBRAL FORAMINA OF LUMBAR REGION active 281829352 SNOMED-CT INTERVERTEBRAL DISC DISORDERS WITH RADICULOPATHY, LUMBOSACRAL REGION active 432709761 SNOMED-CT CHRONIC BACK PAIN active 835609365 SN OMED-CT PAIN IN HIP active 17543774 SNOMED-C T DEPRESSION WITH ANXIETY active 779864 006 SNOMED-CT SUBSTANCE DEPENDENCE active 0675133 SNOMED-CT CHRONIC KIDNEY DISEASE STAGE 2 active 036881029 SNOMED-CT ANXIETY active 14598150 SNOMED-CT MYOPIA OF BOTH EYES active 5840469239 21128 SNOMED-CT HISTORY OF KIDNEY STONE active 936294 008 SNOMED-CT HISTORY OF LUMBAR FUSION 01/19/2020 active 96637088122382 SNOMED-CT DYSURIA 01/16/2023 active 02211877 SNOMED-CT HERPESVIRAL VESICULAR DERMATITIS active 457715863 SNOMED-CT 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 62596 008 SNOMED-CT ANESTHESIA OF SKIN 01/16/2023 active 669952522 SNOMED-CT STONE IN KIDNEY active 98849101 SNOM ED-CT LOW BACK PAIN 01/21/2023 resolved 695581124 SNOME D-CT COLLAPSE 01/21/2023 resolved 729713602 SNOMED-CT DYSURIA 01/20/2019 resolved 81392039 SNOMED-CT LUMBAR RADICULOPATHY 01/21/2023 resolved 78888935 5 SNOMED-CT SACROILIAC PAIN 01/21/2023 resolved 818841019 SNO MED-CT INSOMNIA 01/20/2019 resolved 835515085 SNOMED-CT ACUTE GASTROENTERITIS 04/16/2018 resolved 6109813 3 SNOMED-CT HYPOPOTASSEMIA 01/21/2023 resolved 06276076 SNOM ED-CT LUMBAGO 01/21/2023 resolved 856622024 SNOMED-CT ABDOMINAL PAIN, EPIGASTRIC 04/16/2018 resolved 38470459 SNOMED-CT DYSTHYMIC DISORDER 01/21/2023 resolved 14069679 SNOMED-CT DEPRESSION SCREENING 04/16/2018 resolved 26019512 6 SNOMED-CT MAJOR DEPRESSIVE DISORDER, RECURRENT, MODERATE 01/21/2023 resolved 42653900 SNOMED-CT RADICULOPATHY 01/21/2023 resolved 33103671 SNOME D-CT CONTACT WITH AND (SUSPECTED) EXPOSURE TO INFECTIONS WITH A PREDOMINANTLY SEXUAL 01/21/2023 resolved 464141642 SNOMED- CT ENCOUNTER FOR SCREENING FOR INFECTIONS WITH A PREDOMINANTLY SEXUAL MODE OF TRANS 01/21/2023 resolved 391914676 SNOMED-CT HISTORY OF KIDNEY STONE 10/05/2014 resolved 48641 5008 SNOMED-CT NASAL ULCER 01/20/2019 resolved 59821807 SNOMED- CT Allergies and Adverse Reactions Allergy Substance Reaction Severity Start Date Concern Status Code Code System TRAMADOL Seizure (SNOMED-CT: 9336266) Severe 05/03/2018 Active 44922 RxNorm NKA - NO KNOWN ALLERGIES Mild Active 427611732 SNOMED-CT Plan of Treatment New Patient 30 10/05/2014 Established Patient 15 07/30/2016 covid swab 5 min 01/01/2021 Description Due Date Details Instructions depression screening 05/03/2019 Colonoscopy 08/19/2033 Colonoscopy per formed on 08/20/[address] Mckeon. Recommended repeat colonoscopy in 10 years Personal Care Team Section
--- OUTSIDE RECORDS SUMMARY | 2025-02-03 13:22 | XMS_ITS | Patient Health Record ---
Author Organization [facility] Address [address] [address] Care Team Providers Care Software Specialist Name Role Phone Carmelita Linares Unavailable [phone] Reason For Referral No Information Medications Medication SIG (Take, Route, Frequency, Duration) Notes Start Date End Date Status Lincoln 7.5-325 MG take 1 tablet by ora l route every 6 hours as needed for pain Oral ([facility]) 04/23/2012 Active Nystatin 156319 UNIT/GM apply by topical route 2 times every day to the affected area(s) External ([facility]) 01/27/2012 Active Gabapentin 600 MG take 1 tablet (600MG ) by oral route 3 times every day Oral ([facility]) 04/23/2012 Active Social History Social History [facility] Social Info Question Answer Notes Household/Enviromental Risk Factors: Any Patient/Famil y Concerns : No Do you have any social/cultu ral characteristics? Social Characteristics: Yes Highest level of education: Graduated High School Concerns with daily living situations: None Support from family/friends: Yes Participation in community activities: No Cultural Characteristics: No Communication Barriers Are: None Assessment of Health Literacy Understands how to take medication Yes Understands risks/side effects of medication Yes Drugs/Alcohol: Social Info Question Answer Notes Caffeine Intake: more than 4 cups per day Tea Problems Problem Type SNOMED Code ICD Code Onset Dates Problem Status W/U Status Risk Notes Problem Lumbago (877183912) Lumbago (724.2) 1 Active confirmed ([facility]) Added By: Enriqueta Morley Problem Arthralgia of the pelvic region and thigh (443527566) Pain in joint, pelvic region and thigh (719.45) 1 Active confirmed ([facility]) Added By: Enriqueta Morley Problem Pain in limb (02550804) Pain in soft tissues of limb (729.5) 1 Active confirmed ([facility]) Added By: Enriqueta Morley Plan Of Treatment No Information
--- OUTSIDE RECORDS SUMMARY | 2025-02-03 13:22 | XMS_ITS ---
Author Organization Unknown Address [address], [place] [id number] Phone Care Team Providers Care Dredge Master Name Role Phone YARITZA DUVAL Attending Unavailable Immunization Immunization Date Status Additional Notes Code Code System Td (adult), 2 Lf tetanus toxoid, preservative free, adsorbed 10/25/2009 Completed 09 CVX COVID-19, mRNA, LNP-S, PF, 1 00 mcg/0.5mL dose or 50 mcg/0.25mL dose 09/05/2020 Completed 207 CVX COVID-19, mRNA, LNP-S, PF, 1 00 mcg/0.5mL dose or 50 mcg/0.25mL dose 08/08/2020 Completed 207 CVX Results CBC W DIFF - Collect Date/Ti me: 07/01/2024 12:03 [facility] ID: [id number] [address], [place], [id number] LOINC: 95753-6 Test Value Unit Reference Range Code Code System Flag WBC 6.6 10^3/uL L=3.5 H=11.0 6690-2 LOINC RBC 4.07 10^6/uL L=4.30 H=5.30 789-8 LOINC L HEMOGLOBIN 12.2 g/dL L=12.3 H=17.3 718-7 LOINC L HEMATOCRIT 36.1 % L=36.9 H=49.3 4544-3 LOINC L MCV 89 fl L=81 H=96 787-2 LOINC MCH 30.0 pg L=29.0 H=33.0 785-6 LOINC MCHC 33.8 g/dl L=29.0 H=41.0 786-4 LOINC RDW 38 fl L=32 H=54 PLT COUNT 379 10^3/uL L=140 H=450 777-3 LOINC LY% 25 % L=11 H=41 MO% 7 % L=2 H=14 NE% 56 % L=48 H=75 IG% 0 % L=0 H=1 EO% 10 % L=0 H=5 H BA% 1 % L=0 H=2 LY# 1.67 10^3/uL L=0.30 H=3.30 MO# 0.48 10^3/uL L=0.15 H=1.30 NE# 3.67 10^3/ul L=1.20 H=8.00 IG# 0.02 10^3/uL L=0.00 H=0.10 EO# 0.66 10^3/uL L=0.00 H=0.50 H BA# 0.07 10^3/uL L=0.00 H=0.10 MANUAL DIFF NOT INDICATED MORPHOLOGY COMPREHENSIVE METABOLIC PANE L - Collect Date/Time: 07/01/2024 12:03 [facility] ID: [id number] [address], [place], [id number] INC: [id number] Test Value Unit Reference Range Code Code System Flag IS PATIENT FASTING? GLUCOSE 107 mg/dl L=70 H=100 2345-7 LOINC H BUN 22 mg/dl L=6 H=20 60287-5 LOINC H CREATININE 1.07 mg/dl L=0.60 H=1.10 26281-8 LOINC AGE 44 yrs eGFR 75 25624-9 LOINC SODIUM 140 mmol/L L=133 H=145 2951-2 LOINC POTASSIUM 4.1 mmol/L L=3.3 H=5.1 2823-3 LOINC CHLORIDE 102 mmol/L L=96 H=108 35240-6 LOINC ALK PHOS 96 U/L L=39 H=117 SGOT 24 U/L L=5 H=37 TOTAL BILI 0.4 mg/dl L=0.1 H=1.0 TOTAL PROTEIN 7.9 g/dl L=6.0 H=8.0 ALBUMIN 4.6 g/dl L=3.2 H=5.2 CALCIUM 9.8 mg/dl L=8.4 H=10.2 76256-1 LOINC CO2 29.2 mmol/L L=20.0 H=33.0 35235-0 LOINC ANION GAP 13 mmol/L L=8 H=16 SGPT 21 U/L L=5 H=40 Social History Type Status Start Date End Date Code Code Syst em Smoking History Never smoker (Never Smoked) 639392529 SNOMED CT Sex Male Medications Medication Start [...] OF INTERVERTEBRAL FORAMINA OF LUMBAR REGION active 513156355 SNOMED-CT INTERVERTEBRAL DISC DISORDERS WITH RADICULOPATHY, LUMBOSACRAL REGION active 132191845 SNOMED-CT CHRONIC BACK PAIN active 855722012 SN OMED-CT PAIN IN HIP active 82946745 SNOMED-C T DEPRESSION WITH ANXIETY active 881125 006 SNOMED-CT SUBSTANCE DEPENDENCE active 4982451 SNOMED-CT CHRONIC KIDNEY DISEASE STAGE 2 active 662700151 SNOMED-CT ANXIETY active 94874004 SNOMED-CT MYOPIA OF BOTH EYES active 0556903212 86430 SNOMED-CT HISTORY OF KIDNEY STONE active 219081 008 SNOMED-CT HISTORY OF LUMBAR FUSION 01/19/2020 active 70023428767950 SNOMED-CT DYSURIA 01/16/2023 active 52788187 SNOMED-CT HERPESVIRAL VESICULAR DERMATITIS active 830927001 SNOMED-CT 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 95957 008 SNOMED-CT ANESTHESIA OF SKIN 01/16/2023 active 680794287 SNOMED-CT STONE IN KIDNEY active 36899864 SNOM ED-CT LOW BACK PAIN 01/21/2023 resolved 228451302 SNOME D-CT COLLAPSE 01/21/2023 resolved 043264564 SNOMED-CT DYSURIA 01/20/2019 resolved 94581364 SNOMED-CT LUMBAR RADICULOPATHY 01/21/2023 resolved 00170955 5 SNOMED-CT SACROILIAC PAIN 01/21/2023 resolved 448520888 SNO MED-CT INSOMNIA 01/20/2019 resolved 815987730 SNOMED-CT ACUTE GASTROENTERITIS 04/16/2018 resolved 3051356 3 SNOMED-CT HYPOPOTASSEMIA 01/21/2023 resolved 52757011 SNOM ED-CT LUMBAGO 01/21/2023 resolved 541980184 SNOMED-CT ABDOMINAL PAIN, EPIGASTRIC 04/16/2018 resolved 34672765 SNOMED-CT DYSTHYMIC DISORDER 01/21/2023 resolved 54943028 SNOMED-CT DEPRESSION SCREENING 04/16/2018 resolved 70717426 6 SNOMED-CT MAJOR DEPRESSIVE DISORDER, RECURRENT, MODERATE 01/21/2023 resolved 80530929 SNOMED-CT RADICULOPATHY 01/21/2023 resolved 49965812 SNOME D-CT CONTACT WITH AND (SUSPECTED) EXPOSURE TO INFECTIONS WITH A PREDOMINANTLY SEXUAL 01/21/2023 resolved 490072095 SNOMED- CT ENCOUNTER FOR SCREENING FOR INFECTIONS WITH A PREDOMINANTLY SEXUAL MODE OF TRANS 01/21/2023 resolved 278466719 SNOMED-CT HISTORY OF KIDNEY STONE 10/05/2014 resolved 95232 5008 SNOMED-CT NASAL ULCER 01/20/2019 resolved 41958351 SNOMED- CT Allergies and Adverse Reactions Allergy Substance Reaction Severity Start Date Concern Status Code Code System TRAMADOL Seizure (SNOMED-CT: 1220148) Severe 05/03/2018 Active 76792 RxNorm NKA - NO KNOWN ALLERGIES Mild Active 730093090 SNOMED-CT Plan of Treatment New Patient 30 10/05/2014 Established Patient 15 07/30/2016 covid swab 5 min 01/01/2021 Description Due Date Details Instructions depression screening 05/03/2019 Colonoscopy 08/19/2033 Colonoscopy per formed on 08/20/[address] Mckeon. Recommended repeat colonoscopy in 10 years Encounters Encounter Diagnosis Start Date Code Code Sys tem Opioid abuse 07/01/2024 6856392 SNOMED-CT Personal Care Team Section Performer Name Performer Role Active Date Inactive Ayush Sen
--- OUTSIDE RECORDS SUMMARY | 2025-02-03 13:24 | XMS_ITS | Clinical Summary ---
Author Organization [facility] Address [address] [place] [address] Care Team Providers Care Home Administrator Name Role Phone Viktoriya Gary MD Primary Care Provider [phone] Allergies Active Allergy Reactions Criticality Noted Date Comments Tramadol Seizures High 02/22/2022 Medications ibuprofen (ADVIL,MOTRIN) 200 mg tab/cap Take 400 mg by mouth every 6 (six) hours as needed for pain Active famotidine (PEPCID) 20 mg tablet Take 20 mg by mouth 2 (two) times a day as needed for heartburn Active acetaminophen-a spirin-caffeine (EXCEDRIN MIGRAINE) 250-250-65 mg per tabletIndicatio ns:Headache Disorder Take 1 tablet by mouth every 6 (six) hours as needed Active amitriptyline (ELAVIL) 25 mg tabletIndicatio ns:Migraine Prevention Take 25 mg by mouth nightly Active divalproex DR (DEPAKOTE) 500 mg EC tabletIndicatio ns:Migraine Prevention Take 500 mg by mouth 2 (two) times a day Active ondansetron (ZOFRAN) 4 mg tablet Take 1 tablet (4 mg total) by mouth every 8 (eight) hours as needed for nausea or vomiting 12 tablet 3 Active Active Problems Problem Noted Date Diagnosed Date Opiate withdrawal 05/05/2022 Assessment & Plan (05/05/2022 6:16 PM PHP MYSQL WEB DEVELOPER): Patient was previously successful on long-term Suboxone treatment and would like to start taking again after discharge. Will ramp up to 8 mg b.i.d. and monitor response. Will start with a 4 mg dose tonight at 10:00 p.m. (24 hours after his last dose of fentanyl, no other opiates seen on UDS) and can provide up to 3 additional doses if precipitated withdrawal occurs. Supportive care. Warm handoff following. Perforated nasal septum 05/05/2022 Headache 05/05/2022 Opioid use disorder, severe, dependence 02/24/20 Orthostatic hypotension 02/22/2022 Anemia 02/22/2022 Opioid use with withdrawal 02/22/2022 Surgical History Surgery Date Site/Laterality Comments BACK SURGERY Medical History Medical History Date Comments Orthostatic hypotension Family History Medical History Relation Name Comments COPD Father Heart disease Father Diabetes Maternal Grandfather Diabetes Maternal Grandmother Depression Mother Drug abuse Mother Suicide Completion Mother Relation Name Status Comments Father Maternal Grandfather Maternal Grandmother Mother Social History Tobacco Use Types Packs/Day Years Used Date Smoking Tobacco: Never Tobacco Cessation:Counseling Given: Not Answered AUDIT-C Answer Date Recorded Q1: How often do you have a drink containing alcohol? Never 02/22/2022 Q2: How many drinks containi ng alcohol do you have on a typical day when you are drinking? Patient does not drink Q3: How often do you have si x or more drinks on one occasion? Never 02/22/2022 Personal Safety Answer Date Recorded Getting School Help Needed Not on file 05/30 Sex and Gender Information Value Date Recorded Sex Assigned at Not on file Legal Sex Male 10:51 PM PHP MYSQL WEB DEVELOPER Gender Identity Not on file Sexual Orientation Not on file Obstetrics History Last Filed Vital Signs Vital Sign Reading Time Taken Comments Blood Pressure 144/97 06/08/2022 9:31 AM PHP MYSQL WEB DEVELOPER Pulse 91 06/08/2022 9:31 AM PHP MYSQL WEB DEVELOPER Temperature 36.9 C (98.4 F) 06/08/2022 4:03 AM PHP MYSQL WEB DEVELOPER Respiratory Rate 18 06/08/2022 9:31 AM PHP MYSQL WEB DEVELOPER Oxygen Saturation 99% 06/08/2022 9:31 AM PHP MYSQL WEB DEVELOPER Inhaled Oxygen Concentration - - Weight 89.6 kg (197 lb 8 oz) 05/05/2022 1:09 PM PHP MYSQL WEB DEVELOPER Height 177.8 cm (5' 10) 05/05/2022 1:09 PM PHP MYSQL WEB DEVELOPER Body Mass Index 28.34 05/05/2022 1:09 PM PHP MYSQL WEB DEVELOPER Plan of Treatment Health Maintenance Due Date Last Done Comments Depression Screening 1981 Varicella Vaccines (1 of 2 - 13+ 2-dose series) 1994 Hepatitis B Screening 1999 Regular Well Visit/Exam 18-64 1999 HPV Vaccines (1 - 3-dose SCD M series) 2008 DTaP/Tdap/Td Vaccine (1 - Tdap) 10/26/2009 0 Influenza Vaccine (#1) 2024 Hepatitis C Screening Completed 02/22/2022 Pneumococcal vaccine <65 Aged Out No longer eligible based on patient's age to complete this topic Procedures Procedure Name Priority Date/Time Associated Diagnosis Comments HEPATITIS C ANTIBODY STAT 02/22/2022 12:37 PM PHP MYSQL WEB DEVELOPER from Last 3 Months or Most Recently Relevant to Health Maintenance Results * Hepatitis C antibody (02/22/2022 12:37 PM PHP MYSQL WEB DEVELOPER) Hep C Ab Nonreactive Nonreactive [facility] ([facility]) Comment: Interpretive Data Nonreactive: Antibodies to HCV not detected. Does NOT exclude the possibility of recent exposure to HCV. Equivocal: Equivocal for HCV antibodies. Supplemental molecular testing will be automatically performed to determine infection status in accordance with current CDC screening recommendations. Reactive: Positive for HCV antibodies. This may represent current or past HCV infection. Supplemental molecular testing will be automatically performed to determine current infection status in accordance with current CDC screening recommendations. Interpretive data was last revised on 2019. Testing performed by: [facility], [address] [place] [address], [place]., [address] Blood 02/22/2022 12:3 7 PM PHP MYSQL WEB DEVELOPER 02/22/2022 1:47 PM PHP MYSQL WEB DEVELOPER Rhea Granados MD LAB MICROBIOLOGY - GENERA L ORDERABLES Final Result [facility] ([facility]) [facility] [place] [address] from Last 3 Months or Most Recently Relevant to Health Maintenance Insurance [facility] Advance Directives For more information, please contact: [phone] * Full Code (Latest Code Status on File) Date Activated Date Inactivated Comments 05/05/2022 1:27 PM 05/08/2022 6:09 AM * Full Code Date Activated Date Inactivated Comments 02/22/2022 12:21 PM 02/24/2022 11:43 AM Care Teams Home Administrator Relationship Specialty Start Date End Date Viktoriya Gary MD [address] [place] [address] PCP - General 03/06/17
[2025-02-03 13:45] VITALS: BP 142/97; PULSE 64; RESP 16; TEMP 36.5; O2SAT 100
[2025-02-03 14:06] LABS: Hematocrit 34.6 % (42.0-52.0); Hemoglobin 11.6 g/dL (14.0-18.0); Immature Granulocyte Percent A 0.4 % (0-0.5); Lymphocytes Absolute Auto 1.91 K/mm3 (0.9-3.2); Mean Corpuscular HGB Conc 33.5 g/dl (32-36); Mean Corpuscular Hemoglobin 30.1 pg (26-34); Mean Corpuscular Volume 89.6 fl (80-100); Nucleated Red Blood Cells Absolute Auto 0.000 K/mm3 (0.0-0.012); Nucleated Red Blood Cells Perc 0.0 % (0.0-0.2); Platelet Count Result 442 k/mm3 (150-375); Red Blood Count 3.86 M/mm3 (4.6-6.20); White Blood Count 7.9 K/mm3 (4.5-10.0)
[2025-02-03 14:17] LABS: Alanine Aminotransferase 18 U/L (6-50); Albumin Level 4.5 g/dL (3.5-5.1); Alkaline Phosphatase 112 U/L (38-126); Anion Gap 9 mmol/L (4-12); Aspartate Amino Transferase 22 U/L (17-59); Bilirubin,Total 0.3 mg/dL (0.2-1.3); Blood Urea Nitrogen 23 mg/dL (9-20); Calcium 9.1 mg/dL (8.4-10.2); Carbon Dioxide 25 mmol/L (22-30); Chloride 105 mmol/L (98-107); Estimated CRCL calculation 73 ml/min; Estimated Glomerular Filt Rate > 60; Glucose 122 mg/dL (65-110); Potassium 3.7 mmol/L (3.4-5.0); Sodium 139 mmol/L (137-145); Total Protein 7.6 g/dL (6.3-8.2)
[2025-02-03 14:29] LABS: Add Urine Microscopic? YES; Appearance Urine Cloudy (Clear); Glucose Urine UA Negative (Negative); Leukocyte Esterase Ur 1+ LEU/UL (Negative); Need Manual Microscopic Reviewed; Nitrate Urine Negative (Negative); Non Pathogenic Casts 0-2; Specific Grav Ur 1.023 (1.001-1.035)
--- NOTE | 2025-02-03 15:12 | ED.MALEGU ---
HPI - Male Genitourinary General Chief complaint: Urogenital-Male Stated complaint: Possible Kidney Stone Time Seen by Provider: 02/03/25 14:55 Source: patient Mode of arrival: ambulatory Limitations: no limitations History of Present Illness HPI Narrative: This is a 44-year-old male with history of kidney stones who presents the ED for flank pain. [facility] onset of right flank pain today but that felt similar to prior episodes of kidney stones. He states that it began to radiate down to his lower abdomen. The pain is 10/10. He has had nausea and 1 episode of emesis. Denies fevers, chills, chest pain, shortness of breath, hematuria, dysuria. Related Data Allergies Allergy/AdvReac Type Severity Reaction Status Date / Time tramadol AdvReac Seizure Verified 02/03/25 15:08 Review of Systems Review of Systems: Gen.: Denies fevers or chills Eyes: Denies eye pain or visual change ENT: Denies congestion Respiratory: Denies shortness of breath or cough CV: Denies chest pain or palpitations GI: As per HPI denies burning, urgency, frequency or hematuria Musculoskeletal: Denies back pain or muscle pain Neuro: Denies numbness, tingling, weakness or focal weakness Skin: Denies rash Except as documented, all other systems reviewed and negative Exam Narrative: APPEARANCE: Moderate distress, rolling around in bed EYES: EOMI HEENT: Normocephalic, atraumatic, OMM RESPIRATORY: No respiratory distress Clear to auscultation bilaterally with no rhonchi wheezing or rales. CARDIOVASCULAR: Regular rate and rhythm without murmurs rubs or gallops. ABDOMINAL: Soft, mild right lower quadrant tenderness to palpation, nondistended, no rebound or guarding. CVA tenderness on the right MUSCULOSKELETAl: Moves all extremities. No clubbing, cyanosis or edema. NEURO: Awake and alert. Following commands, speech normal, no focal deficits SKIN:: Warm, dry. No rashes lesions or abrasions PSYCHIATRIC: Normal affect/mood, Course Vital Signs Vital signs: Vital Signs Temperature 97.7 F 02/03/25 13:45 Pulse Rate 64 02/03/25 13:45 Respiratory Rate 16 02/03/25 13:45 Blood Pressure 142/97 H 02/03/25 13:45 Pulse Oximetry 100 02/03/25 13:45 Oxygen Delivery Room Air 02/03/25 13:45 Temperature 97.7 F 02/03/25 13:45 Pulse Rate 84 02/03/25 17:12 Respiratory Rate 16 02/03/25 17:12 Blood Pressure 138/92 H 02/03/25 17:12 Pulse Oximetry 99 02/03/25 17:12 Oxygen Delivery Room Air 02/03/25 13:45 MDM - Male Genitourinary MDM Narrative Medical decision making narrative: 44-year-old male Presenting for right flank pain and right lower quadrant abdominal pain. On initial evaluation patient was in no acute distress afebrile, hemodynamic stable. Differentials include but are not limited to: Appendicitis, constipation, IBD, IBS, ureterolithiasis, enterocolitis, colitis, hernia Notable exam findings: Uncomfortable appearing, right CVA tenderness, right lower quadrant tenderness palpation Notable lab findings: Anemic to 11.6. CMP without significant abnormalities. UA with hematuria. Notable imaging findings: CT abdomen/pelvis showed an obstructing 4 mm stone at the right UVJ, also noted nonobstructing 2 mm stone on the left with multiple other nonobstructive stones. Patient initially given Toradol, Zofran, 1 L NS bolus and had minimal improvement of symptoms. He was subsequently given morphine with near resolution of his pain. Given this year number stones, I did discuss the case with Dr. Harris, urology, who recommends the patient can be discharged home if symptoms are under control again seen in the office on Thursday. Patient will be given prescriptions for Toradol and [place] and Flomax. He was advised follow-up with Dr. Harris. Patient was agreeable to this plan. Given strict return precautions. Medical Records Attestation: I reviewed the patient's medical records. Lab Data Attestation: I reviewed the patient's lab results. 02/03/25 13:53 02/03/25 13:53 Labs: Lab Results 02/03/25 Range/Units 13:53 WBC 7.9 (4.5-10.0) K/mm3 RBC 3.86 L (4.6-6.20) M/mm3 Hgb 11.6 L (14.0-18.0) g/dL Hct 34.6 L (42.0-52.0) % MCV 89.6 (80-100) fl MCH 30.1 (26-34) pg MCHC 33.5 (32-36) g/dl RDW 12.5 (11.5-14.5) % Plt Count 442 H (150-375) k/mm3 MPV 9.2 (7.4-10.4) fl Immature Gran % (Auto) 0.4 (0-0.5) % Neut % (Auto) 57.5 (45.5-73.1) % Lymph % (Auto) 24.3 (18.3-44.2) % Brule % (Auto) 8.0 (2.6-8.5) % Eos % (Auto) 8.7 H (0-4.4) % Baso % (Auto) 1.1 (0.2-1.2) % Lymph # (Auto) 1.91 (0.9-3.2) K/mm3 Brule # (Auto) 0.6 (0.1-0.6) K/mm3 Eos # (Auto) 0.7 H (0-0.3) K/mm3 Baso # (Auto) 0.1 (0.0-0.1) K/mm3 Abs Immat Gran (auto) 0.03 (0.00-0.031) K/mm3 Absolute Neuts (auto) 4.5 (1.3-6.7) K/mm3 Absolute Nucleated RBC 0.000 (0.0-0.012) K/mm3 Nucleated RBC % 0.0 (0.0-0.2) % Sodium 139 (137-145) mmol/L Potassium 3.7 (3.4-5.0) mmol/L Chloride 105 (98-107) mmol/L Carbon Dioxide 25 (22-30) mmol/L Anion Gap 9 (4-12) mmol/L BUN 23 H (9-20) mg/dL Creatinine 1.20 (0.7-1.3) mg/dL Estim Creat Clear Calc 73 ml/min Estimated GFR > 60 (59 - ) Glucose 122 H (65-110) mg/dL Calcium 9.1 (8.4-10.2) mg/dL Total Bilirubin 0.3 (0.2-1.3) mg/dL AST 22 (17-59) U/L ALT 18 (6-50) U/L Alkaline Phosphatase 112 (38-126) U/L Total Protein 7.6 (6.3-8.2) g/dL Albumin 4.5 (3.5-5.1) g/dL Urine Color Yellow (Yellow) Urine Appearance Cloudy H (Clear) Urine pH 6.0 (5.0-9.0) Ur Specific [place] 1.023 (1.001-1.035) Urine Protein 1+ H (Negative) mg/dL Urine Glucose (UA) Negative (Negative) mg/dL Urine Ketones Negative (Negative) mg/dL Ur Blood (Man) 3+ H (Negative) Urine Nitrate Negative (Negative) Urine Bilirubin Negative (Negative) Urine Urobilinogen 0.2 (<2.0) mg/dL Add Ur Microanalysis Reviewed Leukocyte Esterase Rfl 1+ H (Negative) JOSE JUAN/UL Urine RBC >100 H (0-2) /hpf Urine WBC 11-20 H (0-3) /hpf Ur Squamous Epith Cells None seen (Few) /hpf Calcium Oxalate Crystal Present (None) /hpf Urine Bacteria None seen /hpf Urine Casts 0-2 Imaging Data Attestation: I personally reviewed and interpreted this imaging study as follows: Radiologist's impression: Impressions Abdomen/Pelvis CT 02/03/25 16:03 IMPRESSION: 1. Bilateral nephrolithiasis with obstructing 4 mm on the distal right ureter with mild right hydronephrosis. Nonobstructing 2 mm and 7 more stones in the proximal left ureter without hydronephrosis. Discharge Plan Discharge Clinical Impression: Ureterolithiasis Patient Disposition: Home Condition: Stable Instructions: Antibiotic Form, Kidney Stones (ED) Additional Instructions: Take Toradol and hydrocodone for severe pain. You were given a referral to Dr. Harris, Urology, follow-up if you continue to have problems with kidney stones. Return to the ED for any new or worsening symptoms. Patient Language: Polish Prescriptions: New hydrocodone-acetaminophen 5-325 mg tablet 1 tablet PO Q8H PRN (Reason: pain) Qty: 12 0RF ketorolac 10 mg tablet 10 mg PO Q8H PRN (Reason: pain (scale score 4-6)) Qty: 15 0RF Rx Instructions: maximum total duration of 5 days from all oral, intranasal, or parenteral formulations ondansetron 4 mg tablet,disintegrating 4 mg PO Q8H PRN (Reason: nausea and vomiting) Qty: 14 0RF Follow-up/Referrals: PHYSICIAN NOT ON STAFF,NONSTAFF [Primary Care Provider] Giuliano Harris MD [Physician, Urology]
[2025-02-03] MEDS: ONDANSETRON INJ 4 MG/2 ML VIAL IV PUSH (15:25)
[2025-02-03] MEDS: SODIUM CHLORIDE 0.9% IV 1,000 ML 999 ML IV CONT (15:26)
[2025-02-03] MEDS: KETOROLAC 30 MG/ML VIAL (*BKC) IV PUSH (15:26)
[2025-02-03] MEDS: MORPHINE SULFATE (*CRX) 4 MG/ML INJ IV PUSH (16:14)
[2025-02-03 16:19] VITALS: BP 115/68; PULSE 58; RESP 16; O2SAT 98
[2025-02-03 16:44] VITALS: BP 118/61; PULSE 52; RESP 16; O2SAT 98
[2025-02-03 17:12] VITALS: BP 138/92; PULSE 84; RESP 16; O2SAT 99
== END 2025-02-03 17:13 | disposition home or self-care (01) ==
PROVIDERS: Emergency Provider Student in an Organized Health Care Education/Training Program
DX: N13.2 Hydronephrosis with renal and ureteral calculous obstruction (principal); Z87.442 Personal history of urinary calculi
CPT/HCPCS: 36415; 74176; 80053; 81001; 85025; 87086; 96361; 96374; 96375; 99284; J1885; J2270; J2405; J7030